=== PATIENT | male | born 1940 | race African-American/Black ===

== ENCOUNTER 2018-10-05 14:00 | Outpatient (CLI) | payer MEDICARE, MEDICAID ==
--- NOTE | 2018-10-05 14:28 | RAD ---
RADIOGRAPH CHEST 2 VIEWS: DATE: 10/05/2018 HISTORY: 78-year-old male with dyspnea FINDINGS: There is no airspace density, pulmonary edema, pleural effusion, pneumothorax, or cardiomegaly. There is mild hyperinflation consistent with COPD. IMPRESSION: 1. No acute cardiopulmonary findings. 2. Mild emphysema.
== END 2018-10-05 14:01 | disposition home or self-care (01) ==
LOC: RAD 14:00
PROVIDERS: ATTEND Internal Medicine Pulmonary Disease
DX: R06.00 Dyspnea, unspecified (principal); J43.9 Emphysema, unspecified
CPT/HCPCS: 71046

== ENCOUNTER 2021-12-11 10:15 | Outpatient (CLI) | payer OTHER | END 2021-12-11 10:16 | disposition home or self-care (01) | LOC: PET 10:15 | PROVIDERS: ATTEND Internal Medicine Hematology & Oncology | DX: R91.8 Other nonspecific abnormal finding of lung field (principal); R91.1 Solitary pulmonary nodule | CPT/HCPCS: 78815; A9552 ==